=== PATIENT | female | born 1945 | race Caucasian/White ===

== ENCOUNTER → 2017-01-26 | Outpatient (CLI) | payer MEDICARE ==
[~2017-01-26] MED LIST: ALPRAZOLAM0.5 MG PO; CALCI-MIX500 M1 PO; CRANBERRY CONC500 MG PO; E-400400 IU PO; FISH OIL CONCEN1 SGL PO; LEVOTHYROXIN0.137 M1 PO; LISINOPRIL 20MG20 MG PO; MULTI VITAMINS1 TA1 PO; OMEPRAZOLE20 MG PO; OXYBUTYNIN5 MG PO; PRAVASTATIN 40M40 MG PO; SUPER B COMPLEX1 CAP PO; TRAMADOL HYDROC1 TA1 PO; VICODIN 5/500 T1 TAB PO; VITAMIN D32000 IU PO
--- NOTE | 2017-02-01 12:28 | RADIOLOGY REPORT PS360 ---
DIG MAMM-SCREEN JOSE A W/CAD CAD Screening ORDERING PHYSICIAN : Jessica Coats APRN PATIENT AGE: 71 years GENDER: Female COMPARISON: Previous mammograms: December 2014, November 2011, September 2006 INDICATION: Routine screening No hormones. Previous surgical, benign excisional biopsy bilateral TECHNIQUE: Standard CC and MLO images were obtained. R2 CAD reviewed. FINDINGS: Dense breast bilaterally for age. I'm surprised there is no history of exogenous hormone with such... Beading slightly nodular character bilateral. Mammography of decreased sensitivity in breast character. . No discrete changes previous studies in either breast. I would strongly encourage continued annual follow-up in this this character breast, difficult image breast, even with this age patient.. You may want encourage self breast examination and low threshold for ultrasound any palpable areas in breast of this character . Also note slight progression of scattered benign calcifications in both breast but these can be followed safely. IMPRESSION: Fairly dense breast bilaterally for age decrease sensitivity mammography. . No discrete new areas of concern but would encourage ongoing bilateral follow-up one year pneumonitis breast architecture. BI-RADS CATEGORY: 2 RECOMMENDED FOLLOWUP: 12M 12 MONTH FOLLOW-UP (A letter has been sent to the patient regarding results of the study.)
== END ==
LOC: RAD 16:12
DX: Z12.31 Encounter for screening mammogram for malignant neoplasm of breast (principal)
CPT/HCPCS: G0202